=== PATIENT | female | born 1960 | race Caucasian/White ===

== ENCOUNTER 2025-08-03 10:08 | Emergency (ER) | payer MEDICARE ==
[~2025-08-03] VITALS: Ht 162.6 cm; Wt 54.0 kg
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
[2025-08-03] MEDS: HYDROcodone-ACET 5/325MG TAB PO ONE (12:18)
--- NOTE | 2025-08-03 12:27 | DVH ---
INDICATION: Back pain TECHNIQUE: Frontal and lateral views of the lumbar spine were obtained. COMPARISON: None FINDINGS: . There is grade 1 anterolisthesis at L4-L5. Vertebral body heights are maintained. There is intervertebral disc space narrowing most severe at L5-S1. No acute fracture. IMPRESSION: 1. No acute fracture. 2. Grade 1 anterolisthesis at L4-L
[2025-08-03 12:29] VITALS: BP 171/97; PULSE 62; RESP 18; TEMP 97.5; O2SAT 100
[2025-08-03] MEDS ORDERED: METH-1181 PO (12:34)
== END 2025-08-03 12:44 | disposition home or self-care (01) ==
LOC: ER 10:08
DX: M43.16 Spondylolisthesis, lumbar region (principal); Z88.0 Allergy status to penicillin
CPT/HCPCS: 72100